=== PATIENT | male | born 1945 | race Caucasian/White ===

== ENCOUNTER 2016-10-22 12:46 | Emergency (ER) | payer MEDICARE ==
[~2016-10-22] VITALS: Ht 180.3 cm; Wt 90.7 kg
[2016-10-22 13:26] VITALS: BP 130/95
--- NOTE | 2016-10-22 13:42 | Emergency Room Report ---
History of Present Illness General Chief Complaint: Male Urogenital Problems Source: Patient Present Illness HPI The patient is a 71-year-old male presenting for difficulty urinating for the past week. The patient states that she has an increased urgency to urinate but is unable to completely void the bladder. Patient also notes a tingling sensation while urinating. The patient states that he has had a urinary tract infection in the past and this feels similar. Patient states that he had his prostate checked 6 months prior for a routine exam which was normal. The patient denies any other symptoms including fever, chills, flank pain, hematuria , abdominal pain Allergies: Coded Allergies: No Known Allergies (Unverified , 10/22/16) Patient History Past Medical History: see triage record Pertinent Family History: none Reviewed Nursing Documentation: PMH: Agreed, PSxH: Agreed Nursing Documentation-PMH Past Medical History: No History, Except For Hx Hypertension: Yes Review of Systems All Other Systems: negative except mentioned in HPI Physical Exam Vital Signs Date Time Temp Pulse Resp B/P Pulse Ox O2 Delivery O2 Flow Rate FiO2 10/22/16 13:17 98.2 76 18 130/95 98 Room Air Sp02 EP Interpretation: reviewed, normal General Appearance: no apparent distress, alert, GCS 15, non-toxic Head: normocephalic, atraumatic Eyes: bilateral eye PERRL, bilateral eye normal inspection ENT: hearing grossly normal, normal pharynx, no angioedema, normal voice Gastrointestinal: normal bowel sounds, non tender, soft, non-distended, no guarding, no rebound Genitourinary: normal inspection, no CVA tenderness Musculoskeletal: back normal, gait/station normal, normal range of motion, non- tender Neurologic: alert, oriented x3, responsive, motor strength/tone normal, sensory intact, speech normal Psychiatric: judgement/insight normal, memory normal, mood/affect normal, no suicidal/homicidal ideation Skin: normal color, no rash, warm/dry, well hydrated Lymphatic: no adenopathy Medical Decision Making PA Attestation Dr. Patel is my supervising physician. Patient management was discussed with my supervising physician Diagnostic Impression: Primary Impression: Urinary tract infection Additional Impression: Hematuria ER Course The patient is a 71-year-old male presenting for difficulty urinating for the past week. Differential diagnosis considered but not limited to: UTI, pyelonephritis, urethritis, BPH PE: Vitals WNL. NAD. Abdomen: Normal appearance. Non distended. No ecchymosis. Normal BS. Non TTP. No McBurney point tenderness. No guarding. No CVA tenderness Urinalysis is consistent with urinary tract infection The patient is discharged home with a prescription for Keflex and is told to follow up with PMD. Patient informed of his results including hematuria. Patient will need to followup with urologist. Labs Test 10/22/16 13:26 Urine Color Pale yellow Urine Appearance Slightly cloudy Urine pH 5 (4.5-8.0) Urine Specific [place] 1.025 (1.005-1.035) Urine Protein 2+ (NEGATIVE) Urine Glucose (UA) Negative (NEGATIVE) Urine Ketones Negative (NEGATIVE) Urine Occult Blood 5+ (NEGATIVE) Urine Nitrite Negative (NEGATIVE) Urine Bilirubin Negative (NEGATIVE) Urine Urobilinogen Normal MG/DL (0.0-1.0) Urine Leukocyte Esterase 3+ (NEGATIVE) Urine RBC 10-15 /HPF (0 - 0) Urine WBC 40-60 /HPF (0 - 0) Urine Squamous Epithelial Cells Occasional /LPF Urine Bacteria Few /HPF (NONE) Lab Results Impression Urinalysis is consistent with urinary tract infection Last Vital Signs Date Time Temp Pulse Resp B/P Pulse Ox O2 Delivery O2 Flow Rate FiO2 10/22/16 13:26 18 130/95 98 Room Air 10/22/16 13:17 98.2 76 Status: improved Disposition: HOME, SELF-CARE Condition: Improved Scripts Cephalexin* (KEFLEX*) 500 Mg Capsule 500 MG ORAL EVERY 6 HOURS, #28 CAP Prov: JAILENE HOLMAN 10/22/16 JAILENE HOLMAN Oct 22, 2016 13:42
[2016-10-22 13:57] LABS: APPEARANCE,URINE SLIGHTLY CLOUDY; KETONES,URINE NEGATIVE (NEGATIVE); LEUKOCYTE ESTERASE ,URINE 3+ (NEGATIVE); NITRITE,URINE NEGATIVE (NEGATIVE); PH,URINE 5 (4.5-8.0); PROTEIN,URINE 2+ (NEGATIVE); UROBILINOGEN,URINE NORMAL MG/DL (0.0-1.0)
[2016-10-22 14:06] LABS: SQUAMOUS EPITHELIAL CELL,UR OCCASIONAL /LPF (NONE/OCC); WBC,URINE 40-60 /HPF (0 - 0)
[2016-10-22 14:07] LABS: BACTERIA,URINE FEW /HPF
[2016-10-22] MEDS ORDERED: CEPHALEXIN500 MG ORAL (14:20)
[2016-10-22 14:22] VITALS: BP 130/95
== END 2016-10-22 14:32 | disposition home or self-care (01) ==
LOC: EMR 13:50
DX: N39.0 Urinary tract infection, site not specified (principal); R31.9 Hematuria, unspecified; I10 Essential (primary) hypertension
CPT/HCPCS: 81003; 87086; 87181; 99283